=== PATIENT | male | born 1995 | race Caucasian/White ===

== ENCOUNTER 2017-11-13 17:50 | Emergency (ER) | payer OTHER ==
[~2017-11-13] VITALS: Ht 162.6 cm; Wt 54.4 kg
[2017-11-13 17:54] VITALS: BP 128/75
--- NOTE | 2017-11-13 17:56 | NUR ---
PT AMBULATES TO BED 3
--- NOTE | 2017-11-13 17:58 | NUR ---
22YO M TO ER FOR left toothache x 3 days with fevers and headaches. Reports pus draining. NO OTHER MEDICAL COMPLAINTS med hx: asthma meds: none
[2017-11-13 18:22] VITALS: BP 128/75
--- NOTE | 2017-11-13 18:22 | NUR ---
Patient discharged with v/s stable. Written and verbal after care instructions given and explained. Patient alert, oriented and verbalized understanding of instructions. Ambulatory with steady gait. All questions addressed prior to discharge. ID band removed. Patient advised to follow up with PMD. Rx of AUGMENTIN , IBUPROFEN given. Patient educated on indication of medication including possible reaction and side effects. Opportunity to ask questions provided and answered.
== END 2017-11-13 18:22 | disposition home or self-care (01) ==
LOC: MED 17:50
DX: K08.89 Other specified disorders of teeth and supporting structures (principal)
CPT/HCPCS: 99283